=== PATIENT | female | born 1995 | race Caucasian/White ===

== ENCOUNTER 2020-08-26 16:29 | Emergency (ER) | payer MEDICAID ==
[~2020-08-26] VITALS: Ht 157.5 cm; Wt 43.0 kg
[2020-08-26] MEDS ORDERED: ONDANSETRON 4MG ODT PO STA (17:17)
[2020-08-26] MEDS ORDERED: ACETAMINOPHEN 325MG TABLET PO STA (17:17)
[2020-08-26] MEDS ORDERED: SODIUM CHLORIDE 0.9% 1,000 ML IV ONE (18:00)
[2020-08-26] MEDS ORDERED: METOCLOPRAMIDE HCL 10MG/2ML VIAL IV ONE (18:00)
[2020-08-26 18:11] LABS: BASOPHILS % 0.3 % (0.0-2.0); HEMATOCRIT. 42.6 % (36.0-48.0); HEMOGLOBIN. 14.5 g/dL (12.0-16.0); LYMPHOCYTES % 8.1 % (20.0-50.0); MEAN CORPUSCULAR HEMOGLOBIN 30.3 pg (28.0-32.0); MEAN CORPUSCULAR VOLUME 89.2 fL (81.0-99.0); MEAN PLATELET VOLUME 10.1 fl (7.4-10.4); MONOCYTES % 3.1 % (2.0-8.0); NEUTROPHILS % 88.5 % (40.0-76.0); PLATELET 192 x1000/uL (130-400); RED BLOOD CELL COUNT 4.77 mill/uL (4.2-5.4); RED CELL DISTRIBUTION WIDTH 12.8 % (11.6-14.6)
[2020-08-26 18:16] LABS: HCG SCREEN NEGATIVE
[2020-08-26 18:17] LABS: CHLORIDE 107 mEq/L (98-107)
[2020-08-26 18:21] LABS: ETHANOL BLOOD < 10 mg/dL
[2020-08-26 20:00] VITALS: BP 135/72
== END 2020-08-26 20:32 | disposition home or self-care (01) ==
LOC: ER 16:29
DX: G43.909 Migraine, unspecified, not intractable, without status migrainosus (principal); G44.89 Other headache syndrome; R00.0 Tachycardia, unspecified
CPT/HCPCS: 36415; 70450; 80053; 80320; 83605; 83690; 84703; 85025; 96361; 96374; 99284; J2765; J7030; G0480

== ENCOUNTER 2022-03-31 17:30 | Emergency (ER) | payer MEDICAID ==
[~2022-03-31] VITALS: Ht 160 cm; Wt 46.0 kg
[2022-03-31 17:37] VITALS: BP 123/80
[2022-04-01] MEDS ORDERED: AMOX50SU15 MT ×2 (02:21)
[2022-04-01] MEDS ORDERED: AMOXICILLIN/CLAVULANATE 80MG/ML ORAL SYR PO ONE (02:30)
[2022-04-01] MEDS ORDERED: AMOXICILLIN/POTASSIUM CLAVULANATE 400MG/5ML 50ML PO NR (02:45)
[2022-04-01] MEDS ORDERED: AMOX50SU15 PO (11:30)
== END 2022-04-01 03:11 | disposition home or self-care (01) ==
LOC: ER 17:30
DX: N39.0 Urinary tract infection, site not specified (principal)
CPT/HCPCS: 99283